=== PATIENT | male | born 1945 | race Caucasian/White ===

== ENCOUNTER 2017-04-08 13:30 | Outpatient (RCR) | payer MEDICARE, OTHER, SELFPAY ==
--- NOTE | 2017-03-10 11:23 | HP.PTEVAL_ITS ---
Patient's Visit Information TIAGO VERONICA is a 71 year old M referred to Physical Therapy by DIDI SIMS,DIDI with a diagnosis of RIGHT HIP JOIN PAIN. TENDINITIS.. Date of Evaluation: 03/10/17 Physical Therapist: Kyara Nielsen - Visit Plan Frequency: 2-3x /Week Duration: 4-6 Weeks Plan: AQUATIC THERAPY. POSTURE CORRECTION/STRENGTHENING, INSTRUCTION IN APPROPRIATE BODY MECHANICS AND ACTIVITY MODIFICATIONS. DLS STARTING WITH A NEUTRAL SPINE PROGRESSING ROM TOLERATED. SHANTELLE LE ROM, STRETCHING AND STRENGTHENING. HEP INSTRUCTION. *MONITOR RIGHT GROIN PAIN* - Subjective Subjective: Work/Leisure: RETIRED. LIKES TO [employer]. Disability: NO. Present symptoms: RIGHT LOW BACK AND RIGHT GROIN PAIN. RIGHT ANTERIOR THIGH PAIN INTERMITTENTLY TOO. THE RIGHT GROIN PAIN IS THE WORST. Present since: SEPTEMBER 2016. Pain Scale: WORST 9/10, LEAST 0/10. Currently: 2/10. Commenced as a result of: LIFTING HEAVY ROCKS OUT OF THE [place] AND STACKING THEM. FELT THE PAIN THE NEXT DAY. Symptoms at onset: RIGHT LOW BACK. Worse: BENDING, STOOPING DOWN, SITTING IN RECLINER, LIFTING, PROLONGED WALKING, PROLONGED STANDING, STEPS, AND TWISTING. LYING DOWN IN POSITION. Better: FREQUENT CHANGE OF POSITION. TURNING RIGHT TOES IN IN STANDING WILL USUALLY GET THE PAIN TO GO AWAY. SOMETIMES HE LOCKS UP AND CAN'T MOVE HIS RIGHT LEG OR BACK THEN IF HE MOVES JUST RIGHT THE PAIN GOES AWAY AND HE IS FINE. SOMETIMES THE PAIN IS IN THE GROIN AND BACK AT THE SAME TIMES ESPEICALLY IN THE RECLINER. Disturbed sleep: YES. Previous history/Previous treatment: HURT BACK A TEENAGER AND AFTER THAT ONCE IN A WHILE LBP SELF MANAGED. NO CHIROPRACTOR. NO CLIFTON'S. NO BACK SURGERY. NO PT. Coughing/sneezing/straining: NEGATIVE. Gait : DISTANCE LIMITED. HAS TO POINT RIGHT TOE IN TO LESSEN PAIN WALKING. ALSO WEIGHT BEARING IN STANDING TURNS RIGHT LEG IN FOR RELIEF. UNABLE TO DO STEPS NORMAL - GOES UP AND DOWN SIDEWAYS. AT TIMES THERE IS A CLICKING IN RIGHT GROIN. Difficulty initiating urinatin: NO. Accidents: NO. Unexplained weight loss: NO. Imaging: RIGHT HIP X-RAYS - ?, LUMBAR MRI - BULGING DISCS. PATIENT REPORTS THAT THE DOCTOR TOLD HIM THE DISCS ARE NOT OF CONCERN AND THE NERVES ARE NOT BEING PINCHED. HE THINKS THE HIP X-RAY WAS NORMAL. MAYBE MILD ARTHRITIS IN BACK AND HIP PER PATIENT REPORT. PMH: HTN, HIGH CHOLESTROL. Recent major surgery: NO. OTHER: PATIENT REPORTS HIS FAMILY DOCTOR GAVE HIM A STEROID SHOT WITH A MUSCLE RELAXER IN HIS BACK AND IT DIDN'T HELP. HE THEN WENT FOR MRI AND TO DR. KIRK. DR. KIRK REFERRED HIM TO [facility]IN [facility] WITH DR. PRADO AND HE DID AN INJECTION IN HIS HIP WITH NO BENEFIT THEN SENT HIM TO PT. HE STATES DR. KIRK SAID SINCE THE INJECTION IN THE GROIN DIDN'T HELP IT IS NOT A HIP PROBLEM. IF PT DOESN'T HELP DR. PRADO TOLD HIM HE WILL SEND HIM TO AN ORTHOPEDIC HIP SURGEON FOR A DIFFERENT TYPE OF HIP INJECTION. - Objective Sitting Posture: POOR. Standing Posture: POOR. Lordosis: REDUCED. Lateral shift: NO. Relevant shift: N/A. Active Correction of posture: NE. Other Observations: INDEP GAIT INTO PT WITHOUT AD BUT WITH A MILD LIMP ON THE RIGHT LE, RIGTH LE TOEING OUT AND INCREASED TRUNK FLEXION. Motor deficit: SHANTELLE LE'S 5 /5 WITH MMT EXCEPT RIGHT HIP 4-/5 AND LEFT HIP 4/5. Sensory deficit: SHANTELLE LE LIGHT TOUCH SENSATION IS INTACT AND SYMMETRICAL. ROM deficit: TIGHT SHANTELLE HIP FLEXORS, AND HIP EXTERNAL ROTATORS ALONG WITH HS'S AND GASTROC SOLEUS COMPLEX' S. RIGHT HIP ER PROVOKES PAIN AND HE HAS A POSITIVE RIGHT TASHA TEST. NEGATIVE LEFT TASHA. Reflexes: 2/2 SHANTELLE LE'S. Dural Signs: NEGATIVE SHANTELLE LE'S. Lumbar mvmt loss: flex - MIN. ext - JESSIE. R SG - MIN. L SG - MIN. PATIENT GETS RIGHT GROIN PAIN WITH FLEXION IN STANDING AT THE END OF THE AVAILABLE ROM AND WITH RETURN FROM FLEXION. ROTATING RIGHT LE INTERNALLY RELEIVES THE GROIN PAIN AND THEN IT IS FINE. Core strength: POOR. Palpation: NO PALPABLE TENDERNESS. OTHER: PATIENT REPORTS CLICKING IN RIGHT HIP OFF AND ON WITH HIP ROM TESTING. - Goals Goal 1:: DECREASE C/O RIGHT LOW BACK AND RIGHT HIP/THIGH PAIN BUT ESPECIALLY RIGHT GROIN. Goal Time Frame: 4-6 Weeks Goal 2:: IMPROVE SITTING, STANDING, WALKING, STAIR AND SLEEP FUNCTION Goal Time Frame: 4-6 Weeks Goal 3:: INSTRUCT IN PROPHYLAXIS Goal Time Frame: 4-6 Weeks - Rehabilitation Potential Rehabilitation Potential: Fair - Anticipated Interventions Patient/Client Instruction: Educate patient on: Condition, Plan of Care, Risk Factors, Benefits of Fitness Program For the Purpose of:: To improve self management Therapeutic Exercise to Include: Strength training, Body mechanics, Postural training, Flexibilty training, Dynamic Lumbar Stabilization For the Purpose of:: To improve ability of physical actions for home/community/ work/leisure Cryotherapy (ice pack, ice massage): Yes Thermo therapy (hot pack): Yes Ultrasound (thermal/non thermal): Yes For the Purpose of:: To decrease pain, To decrease swelling/inflammation Thank you for the opportunity to evaluate your patient. For Medicare and Medicare HMO plans, please review the plan of care and approve it. It will need to be FAXED BACK to us at [phone] for Medicare purposes. Please let me know if there are questions or concerns regarding this plan of care. Physician Signature: Date:
--- NOTE | 2017-04-08 14:17 | HP.PTDCSUM_ITS ---
HP - PT D/C Summary It has been my pleasure to treat TIAGO VERONICA Sr. under orders from DIDI SIMS, ,DIDI for the diagnosis of RIGHT HIP JOIN PAIN. TENDINITIS. for a total of 9 visit(s). Discharge Date: Please see the following information for a summary of their discharge status. - Subjective Subjective: PATIENT REPORTS HE IS SLOWLY GETTING WORSE. THE PAIN IS COMING MORE FREQUENTLY AND MORE INTENSE. STILL GETTING RIGHT LOW BACK AND RIGHT GROIN PAIN UP TO 10/10 TRANSITIONING FROM SIT TO STAND. STATES HE HAS TO CONSTANTLY CHANGE POSITIONS TO EASE THE PAINS. STATES SOMETIMES TURNING RIGHT FOOT OUT AND SOMETIMES TURNING IT IN RELIEVES THE PAIN. PATIENT DENIES SHANTELLE LE NUMBNESS AND TINGLING. PATIENT REPORTS HE STILL HAS THE SAME PAINS THAT HE STARTED WITH JUST SLOWLY GETTING WORSE. - Pain R hip Pain Intensity (Out of 10): 0 - Objective Objective/Function: INDEP GAIT INTO PT WITHOUT AD BUT WITH A MILD LIMP ON THE RIGHT LE, HE IS NO LONGER TOEING OUT OR WALKING WITH INCREASED TRUNK FLEXION ON INITIAL EVAL. PATIENT CONSISTANTLY HAS DIFFICULTY INITIATING GAIT RIGHT AFTER SITTING. STANDS STILL FOR A MINUTE OR TWO BEFORE TAKING A STEP. Motor deficit: SHANTELLE LE'S 5/5 WITH MMT EXCEPT RIGHT HIP 4-/5 AND LEFT HIP 4/5. Sensory deficit: SHANTELLE LE LIGHT TOUCH SENSATION IS INTACT AND SYMMETRICAL. ROM deficit: RIGHT HIP ER PROVOKES PAIN AND HE HAS A POSITIVE RIGHT TASHA TEST. NEGATIVE LEFT TASHA. Dural Signs: POSSIBLE POSITIVE RIGHT LE DURAL SIGN. Lumbar mvmt loss: flex - MIN. ext - MOD. R SG - MIN. L SG - MIN. PATIENT GETS RIGHT GROIN PAIN WITH FLEXION IN STANDING AT THE END OF THE AVAILABLE ROM AND WITH RETURN FROM FLEXION. HE WAS ABLE TO WAIT WITHOUT ROTATING HIS LEG TO GET THE PAIN TO RELEASE. Core strength: POOR. Palpation: NO PALPABLE TENDERNESS IN LOWER THORACIC OR LUMBAR SPINE OR EVEN WITH PRESSURE OVER THE SACRUM. NO BUTTOCK OR LATERAL HIP PAIN. RIGHT THIGH IS NOT TENDER TO THE TOUCH BUT PATIENT REPORTS THE RIGHT GROIN AREA IS A LITTLE TENDER AND HE THINKS HE NOTICED A LITTLE BIT OF A BULGE IN THE RIGHT GROIN AREA YESTERDAY. OTHER: PATIENT REPORTS CLICKING IN RIGHT HIP OFF AND ON WITH HIP ROM TESTING. - Goals Goal 1:: DECREASE C/O RIGHT LOW BACK AND RIGHT HIP/THIGH PAIN BUT ESPECIALLY RIGHT GROIN. Goal Progress: Not Progressing Goal 2:: IMPROVE SITTING, STANDING, WALKING, STAIR AND SLEEP FUNCTION Goal Progress: Not Progressing Goal 3:: INSTRUCT IN PROPHYLAXIS Goal Progress: Not Progressing - Plan Plan: D/C DUE TO LACK PROGRESS. REFERRED PATIENT BACK TO HIS DOCTOR FOR RE- ASSESSMENT. PATIENT IS AGREEABLE. - D/C Information If there are questions or concerns regarding this patient's physical therapy, please feel free to call me at [phone]. Thank you for the referral of this patient. Sincerely, Kyara Nielsen
== END 2017-04-08 19:00 | disposition home or self-care (01) ==
LOC: PT 13:30
PROVIDERS: Family Provider Family Medicine; PCP Family Medicine
DX: M25.551 Pain in right hip (principal); M77.9 Enthesopathy, unspecified
CPT/HCPCS: 97113; 97162; 97530

== ENCOUNTER → 2017-04-25 09:13 | Outpatient (CLI) | payer MEDICARE, OTHER, SELFPAY ==
[2017-04-25 12:42] LABS: Cholesterol 151 mg/dL (200); Glucose 101 mg/dL (74-106); High Density Lipoprotein 52 mg/dL; Triglycerides 79 mg/dL; Very Low Density Lipoprotein 16 mg/dL (5-40)
== END ==
PROVIDERS: Family Provider Family Medicine; PCP Family Medicine; Visit Provider Family Medicine
DX: Z13.220 Encounter for screening for lipoid disorders (principal); Z13.1 Encounter for screening for diabetes mellitus; E78.5 Hyperlipidemia, unspecified
CPT/HCPCS: 36415; 80061; 82947; 84443

== ENCOUNTER → 2021-01-28 15:30 | Outpatient (CLI) | payer MEDICARE, SELFPAY | PROVIDERS: PCP Family Medicine; Visit Provider Family Medicine | DX: U07.1 COVID-19 (principal) | CPT/HCPCS: 87635; U0005; U0003 ==

== ENCOUNTER 2021-02-02 12:43 | Outpatient (CLI) | payer MEDICARE, OTHER, SELFPAY ==
[2021-02-02 12:53] VITALS: BP 161/97; PULSE 75; RESP 18; TEMP 37.1; O2SAT 99; BMI 30.7
[2021-02-02] MEDS: 0.9% Saline Lock 10 ML Syringe IV (12:58)
[2021-02-02 14:00] VITALS: BP 128/86; PULSE 67; RESP 16; TEMP 37.2; O2SAT 99
[2021-02-02 14:57] VITALS: BP 149/90; PULSE 62; RESP 16; TEMP 36.9; O2SAT 99
== END 2021-02-02 15:00 | disposition home or self-care (01) ==
LOC: MS3OUT 12:43 → MS3 12:44
PROVIDERS: PCP Family Medicine; Referring Provider Nurse Practitioner Adult Health; Visit Provider Nurse Practitioner Adult Health
DX: Z23 Encounter for immunization (principal); U07.1 COVID-19
CPT/HCPCS: J7050; M0245; Q0245; A4216

== ENCOUNTER → 2022-01-14 | Outpatient (CLI) | payer MEDICARE, SELFPAY ==
--- NOTE | 2022-01-14 12:47 | RAD_ITS ---
STUDY: X-RAY CHEST REASON FOR EXAM: Male, 76 years old. COUGH, COPD . TECHNIQUE: Single AP portable view of the chest. COMPARISON: None. FINDINGS: There is hyperinflation of the lungs consistent with chronic obstructive lung disease (COPD). Mild increased markings at the left lung base suggestive of either linear atelectasis and/or linear scarring. There is no demonstrated pleural abnormality. Normal size heart. Calcified bilateral hilar lymph nodes. Normal visualized pulmonary arteries. Normal visualized aortic arch and descending thoracic aorta. There is demineralization of the osseous structures. Normal visualized ribs, clavicles, and shoulders. There is no demonstrated abnormality of the visualized soft tissue structures of the upper abdomen. RAD/Chest PA and Lateral IMPRESSION: Hyperinflation. Mild degree of increased markings at the left lung base suggestive of either linear atelectasis and/or scarring. Electronically Signed: Omi Singleton MD at 13:05 EST ,
== END | disposition home or self-care (01) ==
PROVIDERS: PCP Family Medicine; Referring Provider Family Medicine; Visit Provider Family Medicine
DX: J44.9 Chronic obstructive pulmonary disease, unspecified (principal); R05.9 Cough, unspecified
CPT/HCPCS: 71046